=== PATIENT | female | born 1945 | race Caucasian/White ===

== ENCOUNTER 2017-10-08 12:48 | Emergency (ER) | payer MEDICARE, OTHER ==
[2017-10-08] MEDS: HYDROCODONE/APAP (5/325) TAB PO (15:08)
== END 2017-10-08 16:53 | disposition home or self-care (01) ==
LOC: FTE 12:48
DX: S89.92XA Unspecified injury of left lower leg, initial encounter (principal); M19.90 Unspecified osteoarthritis, unspecified site; W18.30XA Fall on same level, unspecified, initial encounter; Z79.01 Long term (current) use of anticoagulants; Z79.84 Long term (current) use of oral hypoglycemic drugs
CPT/HCPCS: 73562; 99283-25